=== PATIENT | male | born 1995 | race Native Hawaiian/Other Pacific Islander ===

== ENCOUNTER 2017-09-29 15:50 | Emergency (ER) | payer BC ==
[~2017-09-29] VITALS: Ht 185.4 cm; Wt 104.3 kg
[2017-09-29 17:12] LABS: PLATELET COUNT 266 K/uL (142-355)
[2017-09-29 17:22] LABS: POTASSIUM 3.6 mmol/L (3.6-5.2); SODIUM 138 mmol/L (136-145)
[2017-09-29 19:00] VITALS: BP 132/81; TEMP 97.8
== END 2017-09-29 19:00 | disposition home or self-care (01) ==
LOC: ED 15:50
PROVIDERS: Family Medicine
DX: I20.9 Angina pectoris, unspecified (principal)
CPT/HCPCS: 36415; 80053; 81000; 84484; 85027; 93005; 99283

== ENCOUNTER 2021-07-06 19:50 | Observation (INO) | payer BC ==
[~2021-07-06] VITALS: Ht 188 cm; Wt 104.4 kg
[2021-07-06 19:55] VITALS: BP 150/76; TEMP 98.9
[2021-07-06] MEDS ORDERED: VYVANSE50 MG PO (20:12)
[2021-07-06 21:11] LABS: PLATELET COUNT 217 K/uL (142-355)
[2021-07-06 21:22] LABS: POTASSIUM 2.9 mmol/L (3.6-5.2)
[2021-07-06 23:46] VITALS: BP 138/87; TEMP 98.5
[2021-07-07] VITALS: BP 138/87; TEMP 98.5; Ht 188 cm; Wt 104.4 kg
[2021-07-07 03:07] LABS: POTASSIUM 3.3 mmol/L (3.6-5.2)
[2021-07-07 03:48] VITALS: BP 104/47; TEMP 98.2
[2021-07-07 05:01] LABS: PLATELET COUNT 199 K/uL (142-355)
[2021-07-07 05:20] LABS: POTASSIUM 3.8 mmol/L (3.6-5.2)
== END 2021-07-07 12:15 | disposition home or self-care (01) ==
LOC: ED 19:50 → MED/SURG 22:30
PROVIDERS: Emergency Medicine; ADMIT Internal Medicine; ATTEND Internal Medicine
DX: R10.9 Unspecified abdominal pain (principal); E87.6 Hypokalemia; F90.8 Attention-deficit hyperactivity disorder, other type
CPT/HCPCS: 36415; 80048; 80053; 81000; 83735; 85027; 87635; 96360; 99220; 99284; G0378; U0003